=== PATIENT | male | born 1965 | race Caucasian/White ===

== ENCOUNTER → 2016-12-06 | Outpatient (CLI) | payer BC | LOC: LAB 16:58 | DX: Z00.00 Encounter for general adult medical examination without abnormal findings (principal); Z12.5 Encounter for screening for malignant neoplasm of prostate ==

== ENCOUNTER → 2021-02-16 | Outpatient (CLI) | payer BC | LOC: RAD 12:20 | DX: M19.041 Primary osteoarthritis, right hand (principal) ==

== ENCOUNTER → 2021-04-02 | Outpatient (CLI) | payer BC ==
[2021-04-02 12:01] LABS: BASO # 0.04 K/mm3 (0.02-0.10); EOS % 1.7 % (0.0-4.0); HEMATOCRIT 47.9 % (42.0-52.0); HEMOGLOBIN 15.7 g/dL (13.5-18.0); LYMPH# 1.03 K/mm3 (1.50-4.00); MEAN CELL VOLUME 95 fl (78-100); MEAN CORPUSCULAR HEMOGLOBIN 31 pg (27-31); MEAN CORPUSCULAR HGB CONC 33 g/dL (33-37); MEAN PLATELET VOLUME 8.9 fl (7.4-10.4); NEU # 4.44 K/mm3 (1.40-6.50); PLATELET COUNT 208 K/mm3 (130-400); RED BLOOD COUNT 5.06 M/mm3 (4.20-5.60); RED CELL DISTRIBUTION WIDTH 12.1 % (11.5-14.5)
[2021-04-02 12:04] LABS: POTASSIUM 3.9 mmol/L (3.5-5.1)
[2021-04-02 12:05] LABS: ALBUMIN 4.3 g/dL (3.5-5.0)
[2021-04-02 12:06] LABS: CALCIUM 9.6 mg/dL (8.3-10.5)
[2021-04-02 12:07] LABS: TOTAL PROTEIN 7.5 g/dL (6.4-8.3)
[2021-04-02 12:09] LABS: TOTAL BILIRUBIN 0.5 mg/dL (0.2-1.2)
[2021-04-02 12:56] LABS: ERYTHROCYTE SEDIMENTATION RATE 2 mm/hr (0-20)
== END ==
LOC: LAB 11:36
PROVIDERS: Internal Medicine
DX: Z00.00 Encounter for general adult medical examination without abnormal findings (principal); Z12.5 Encounter for screening for malignant neoplasm of prostate